=== PATIENT | female | born 1950 | race Caucasian/White ===

== ENCOUNTER 2018-01-30 15:12 | Outpatient (CLI) | payer MEDICARE, OTHER | END 2018-01-30 15:13 | disposition home or self-care (01) | LOC: BICULT 15:12 | PROVIDERS: ATTEND Internal Medicine Endocrinology, Diabetes & Metabolism | DX: E04.2 Nontoxic multinodular goiter (principal) | CPT/HCPCS: 76536 ==

== ENCOUNTER 2019-02-04 14:08 | Outpatient (CLI) | payer MEDICARE, OTHER ==
--- NOTE | 2019-02-04 14:50 | ULT ---
Exam: Thyroid ultrasound COMPARISON: 01/30/2018, 04/27/2015 HISTORY: Multinodular goiter TECHNIQUE: Sagittal and transverse imaging of the thyroid gland is FINDINGS: Thyroid isthmus measures 0.4 cm Right thyroid lobe measures 4.2 x 1.3 x 1 3 cm. Left thyroid lobe measures 5.0 x 1.8 x 1.8 cm. There are multiple solid echotexture foci in the right thyroid lobe. Largest lesion measures 0.6 x 0. 5 x 0.5 cm and is located in the lower pole. There are multiple solid echotexture masses involving the left thyroid lobe. The largest nodule is in the inferior pole the left thyroid lobe. Nodule is isoechoic and there are punctate calcifications present. Currently, nodule measures 2.3 x 1.9 x 2.2 cm. Previously, this nodule measured 2.3 x 1.7 x 1.9 cm. IMPRESSION: Stable multinodular thyroid gland. Stable solid nodule in the lower pole the left lower l obe with punctate calcifications.
== END 2019-02-04 14:09 | disposition home or self-care (01) ==
LOC: BICULT 14:08
PROVIDERS: ATTEND Internal Medicine Endocrinology, Diabetes & Metabolism
DX: E04.2 Nontoxic multinodular goiter (principal); E07.9 Disorder of thyroid, unspecified
CPT/HCPCS: 76536

== ENCOUNTER 2020-02-27 12:27 | Outpatient (CLI) | payer MEDICARE, OTHER ==
--- NOTE | 2020-02-27 13:05 | ULT ---
Exam: Thyroid ultrasound HISTORY: Multinodular goiter. COMPARISON: 02/04/2019. FINDINGS: Thyroid isthmus: 0.3 cm Right thyroid lobe: 1.6 x 4.3 x 1.3 cm Left thyroid lobe 1.4 x 5.1 x 1.8 cm Thyroid nodules: Right thyroid lobe: Solid nodule in the superior pole measuring 0.7 x 0.6 x 0.4 cm, solid nodule in t he midpole measuring 0.6 x 0.6 x 0.4 cm, solid nodule in the lower pole measuring 0.5 x 0.4 x 0.6 cm. Left thyroid lobe: Solid nodule in the midpole measuring 0.9 x 1.2 x 0.9 cm. Solid nodule in the lowe r pole measuring 2.1 x 1.7 x 1.8 cm. Stable punctate calcifications. IMPRESSION: Multiple solid nodules in left and right thyroid lobe. Largest nodule in the left thyroid lobe has a TI-RADS level of TR4, moderately suspicious. Fine-needl e aspiration of large solid nodule in the lower pole of the left thyroid lobe is recommended. Transcribed Date/Time: 02/27/2020 1:14 PM
== END 2020-02-27 12:28 | disposition home or self-care (01) ==
LOC: BICULT 12:27
PROVIDERS: ATTEND Internal Medicine Endocrinology, Diabetes & Metabolism
DX: E04.2 Nontoxic multinodular goiter (principal)
CPT/HCPCS: 76536

== ENCOUNTER 2021-04-30 13:16 | Outpatient (CLI) | payer MEDICARE, OTHER | END 2021-04-30 13:17 | disposition home or self-care (01) | LOC: BICULT 13:16 | PROVIDERS: ATTEND Internal Medicine Endocrinology, Diabetes & Metabolism | DX: E04.2 Nontoxic multinodular goiter (principal) | CPT/HCPCS: 76536 ==

== ENCOUNTER 2023-04-06 14:05 | Outpatient (CLI) | payer MEDICARE, OTHER | END 2023-04-06 14:06 | disposition home or self-care (01) | LOC: BICULT 14:05 | PROVIDERS: ATTEND Internal Medicine Endocrinology, Diabetes & Metabolism | DX: E04.2 Nontoxic multinodular goiter (principal) | CPT/HCPCS: 76536 ==

== ENCOUNTER 2025-04-15 13:38 | Outpatient (CLI) | payer MEDICARE, OTHER ==
[~2025-04-15 13:38] MED LIST: Iopamidol 370 76% 100 ML VIAL ONE
[2025-04-15 13:57] LABS: Estimated GFR - POC 90.0
== END 2025-04-15 13:39 | disposition home or self-care (01) ==
LOC: CT 13:38
PROVIDERS: ATTEND Internal Medicine Gastroenterology
DX: D64.9 Anemia, unspecified (principal); R63.4 Abnormal weight loss; K57.30 Diverticulosis of large intestine without perforation or abscess without bleeding; R93.2 Abnormal findings on diagnostic imaging of liver and biliary tract; N85.8 Other specified noninflammatory disorders of uterus; R93.422 Abnormal radiologic findings on diagnostic imaging of left kidney; M47.819 Spondylosis without myelopathy or radiculopathy, site unspecified; S32.059A Unspecified fracture of fifth lumbar vertebra, initial encounter for closed fracture
CPT/HCPCS: 36415; 74177; 82565; Q9967